=== PATIENT | male | born 1985 | race Caucasian/White ===

== ENCOUNTER 2020-12-08 17:20 | Emergency (ER) | payer OTHER ==
[~2020-12-08] VITALS: Ht 167.6 cm; Wt 65.8 kg
[~2020-12-08 17:20] MED LIST: NEURONTIN 300300 M1 PO; NOHOMEMEDICATIONS; NORCO 5-325 TA1 EACH PO; PERCOCET 5-3251 EACH PO; PROZAC20 MG PO
[2020-12-08 18:47] VITALS: BP 122/78
== END 2020-12-08 18:49 | disposition home or self-care (01) ==
LOC: ER 17:20
DX: S01.81XA Laceration without foreign body of other part of head, initial encounter (principal); Z90.89 Acquired absence of other organs; W23.0XXA Caught, crushed, jammed, or pinched between moving objects, initial encounter; Y93.89 Activity, other specified; Y92.89 Other specified places as the place of occurrence of the external cause; Y99.9 Unspecified external cause status

== ENCOUNTER 2020-12-14 23:59 | Emergency (ER) | payer OTHER ==
[~2020-12-14] VITALS: Ht 170.2 cm; Wt 78.0 kg
[2020-12-15] MEDS ORDERED: TYLENOL325 M1 PO (01:26)
[2020-12-15] MEDS ORDERED: KEFLEX250 MG PO (01:26)
[2020-12-15 01:40] VITALS: BP 142/88
== END 2020-12-15 01:41 | disposition home or self-care (01) ==
LOC: ER 23:59
DX: L08.89 Other specified local infections of the skin and subcutaneous tissue (principal); L53.8 Other specified erythematous conditions; Z90.49 Acquired absence of other specified parts of digestive tract